=== PATIENT | female | born 1945 | race Caucasian/White ===

== ENCOUNTER → 2016-10-11 | Outpatient (CLI) | payer MEDICARE, OTHER ==
[~2016-10-11] MED LIST: ALLERGY10 M1 PO; ARTHRITIS PAIN650 M3 PO; ATORVASTATIN CA10 MG PO; BIOTIN5000 MCG; CALCIUM + D 6001 TA1 PO; CALCIUM 250+D T1 TAB PO; CALCIUM 600 +1 EAC4 PO; CENTRUM SILVER PO; CERTAGEN PO; CLARITIN10 M2 PO; DRY EYE DROPS; FISH OIL 1,0001 CAP PO; FISH OIL 1,2001 CAP PO; FLONASE ALLERG9.9 ML; FOLIC ACID PO; FOLIC ACID1 MG PO; GLUCOSAMINE &1 EAC1; GLUCOSAMINE 1,51 CA1 PO; HARD NAILS2500 MCG; LEVOTHYROXINE25 MC1 PO; LIPITOR PO; METHOTREXATE2.5 MG PO; PLAQUENIL200 MG; PLAQUENIL200 MG PO; PREDNISONE PO; PREDNISONE1 MG PO; TIROSINT50 MCG PO; TYLENOL ARTHRITIS; VIT E PO; VITAMIN B122500 MCG; VITAMIN B650 MG; VITAMIN D 22000 UNIT; VITAMIN D 4001 UDTAB PO; VITAMIN D35000 UNI1 PO; VITAMIN E400 UNI2 PO; [UNRECOGNIZED DRUG - OTHER] PO
--- NOTE | ~2016-10-11 | CR63 ---
[facility] A Service of [facility] & [facility] RADIOLOGY TEXT RESULTS PATIENT: KODY WASHBURN LOCATION: [facility] : 43 UNIT #: [id number] AGE: [address]: Jose Armando Narvaez MD SEX: F ORDER DR: [id number] [facility] [address] [place], [place] [address] [id number] O MR#: [id number] Acc #: [id number] NAME: KODY WASHBURN : 1945 SEX: F STUDY DATE/TIME: 10/11/2016 11:25 UNIT: [facility] ROOM: STUDY DESCRIPTION: CR Chest 2 View Attending Physician: Jose Armando Narvaez M.D. Referring Physician: Jose Armando Narvaez M.D. Ordering Physician: Jose Armando Narvaez M.D. Primary Care Physician: Don Lam D.O. MEDICAL IMAGING REPORT This report is preliminary unless electronic signature is present EXAM PA and lateral views of the chest 10/11/2016 COMPARISON None INDICATIONS 70-year-old female, preoperative respiratory exam prior to left total knee arthroplasty. FINDINGS No evidence of pneumothorax, pleural effusion or acute airspace disease. Cardiomediastinal silhouette is within normal limits. Mrxu-ka-eosdiywy multilevel anterior spondylosis of the thoracic spine. IMPRESSION No acute radiographic abnormality of the chest. Top normal heart size. Dictated by... Laith Montalvo M.D. THIS IS AN ELECTRONICALLY VERIFIED REPORT Laith Montalvo M.D. at 10/16/2016 4:16 PM Kristina TD: 10/11/2016 16:49 JOB #: [id number] MEDICAL IMAGING REPORT Page 1 of 1 COPY
--- NOTE | ~2016-10-11 | EKG ---
PATIENT: KODY WASHBURN UNIT #: [id number] Ventricular Rate: 60 BPM Atrial Rate: 60 BPM P-R Interval: 216 ms QRS Duration: 96 ms Q-T Interval: 424 ms QTC Calculation(Bezet): 424 ms P [place]: 60 degrees Calculated R [place]: -15 degrees Calculated T [place]: 43 degrees Diagnosis Line: Sinus rhythm with 1st degree A-V block Diagnosis Line: Otherwise normal ECG Diagnosis Line: No previous ECGs available Diagnosis Line: Confirmed by RUDY BAIRES MD ([id number]) on 10/12/2016 Diagnosis Line: 7:52:26 PM INTERPRETING MD: VIRY MONROY
--- NOTE | ~2016-10-11 | CO ---
Unit #: [id number] #: [id number] Patient: KODY WASHBURN [id number] [address] [place], [place] [address] [id number] O MR#: [id number] NAME: KODY WASHBURN ROOM: Age: 70 Sex: F Admission Date: 10/11/2016 : 1945 Attending Physician: Jose Armando Narvaez M.D. Primary Care Physician: Don Lam D.O. Requesting Physician: Jose Armando Narvaez M.D. CONSULTATION REPORT REASON FOR CONSULTATION Preoperative medical evaluation prior to left total knee arthroplasty scheduled by Dr. Narvaez for 10/23/16. HISTORY OF PRESENT ILLNESS The patient is a 70-year-old female who presents to pre-procedural screening for the reasons indicated above. She complains of left knee pain but has no other active complaints at this time. She reports having one episode of left chest pressure without associated symptoms which resolved spontaneously as well as an episode of palpitations for one episode which also was not associated with other symptoms and which resolved spontaneously. She is able to perform her activities of daily living and does not climb stairs. She has never seen a curriculum developer or had a cardiac workup. She denies chest, arm, neck, jaw, back pain or pressure at this time. She denies lightheadedness, dizziness, presyncope, syncope, palpitations. Denies shortness of air, dyspnea on exertion, PND. She has a history of obstructive sleep apnea but is unable to tolerate the CPAP. She states that her snoring has improved markedly after weight loss. She denies myocardial infarction, congestive heart failure, CVA, TIA, renal disease or diabetes. She has been evaluated by Dr. Narvaez and scheduled for the above referenced procedure. PAST MEDICAL HISTORY 1. Osteoarthritis. 2. Obstructive sleep apnea, unable to tolerate CPAP mask. 3. Emphysema. 4. Hypothyroidism. 5. History of bleeding ulcer. 6. Chronic dry eye. 7. Hyperlipidemia. 8. Chronic anemia. 9. Rheumatoid arthritis. 10. Osteopenia. 11. History of skin cancer. 12. Restless leg syndrome. 13. Nausea and vomiting post anesthesia. 14. GERD. PAST SURGICAL HISTORY 1. Tumor excision from right thigh. 2. Breast biopsy x2. 3. Tubal ligation. 4. Hemorrhoidectomy. Unit #: [id number] #: [id number] Patient: KODY WASHBURN 5. Right inguinal hernia repair. 6. ENT. 7. Right total knee arthroplasty. 8. Colonoscopy with excision of polyps with negative reports for malignancy per patient. The patient denies a personal and family history of complications to anesthesia other than nausea and vomiting. ALLERGIES Latex allergy - latex causes burn-like blisters and a rash. Medication allergies - sulfa, codeine and aspirin. Adverse reaction - bleeding ulcers. Levofloxacin with unknown reaction. CURRENT MEDICATIONS 1. Levothyroxine sodium 50 mcg p.o. in the morning at 6 a.m. 2. Methotrexate 25 mg p.o. q.7 days on Sunday. 3. Prednisone 3 mg p.o. daily. 4. Plaquenil 400 mg at bedtime. 5. Atorvastatin calcium 10 mg p.o. Sunday and at bedtime. 6. Folic acid 1 mg p.o. daily. 7. Allergy 10 mg p.o. at bedtime. 8. Flonase Allergy Relief, two sprays inhaled daily p.r.n. allergy symptoms. 9. Dry Eye drops as needed for dry eyes. 10. Calcium 600 plus D3 softgel, one cap p.o. daily. 11. Fish oil 1200 mg softgel, one p.o. daily. 12. Glucosamine and chondroitin, one tab daily. 13. Centrum Silver, one tab p.o. daily. 14. Vitamin D3 5000 units p.o. daily. 15. Vitamin E 400 units p.o. daily. 16. Biotin 5000 mcg p.o. daily. 17. Vitamin B12 1000 mcg p.o. daily. 18. Vitamin B6 100 mg p.o. daily. 19. Arthritis pain relief 650 mg p.o. every six hours p.r.n. pain. SOCIAL HISTORY Denies tobacco use, ETOH use. No illicit drug use. FAMILY HISTORY Per review of Dr. Narvaez's office note and review of the patient - breast cancer, diabetes, hypertension and stroke. REVIEW OF SYSTEMS The patient reports small, dry, intermittently pruritic spot on posterior thigh which has bled after scratching. Reports an episode of left chest pain/pressure and a separate episode of palpitations within the past several months. The patient doesn't climb stairs. She does not have a curriculum developer. A ten point review of systems is conducted and otherwise negative except as indicated under history of present illness above. PHYSICAL EXAMINATION VITAL SIGNS: Temp 97.5, heart rate 62, respiratory rate 20, blood pressure 147/82, oxygen saturation 100% on room air. HEENT: Atraumatic, normocephalic. Sclerae anicteric. No discharge from eyes, ears or noses. LYMPHS: No preauricular, postauricular, tonsillar, submental, anterior, posterior, cervical, supra or infraclavicular adenopathy. Unit #: [id number] #: [id number] Patient: KODY WASHBURN ENDOCRINE: No thyromegaly, thyroid nodules or tenderness. RESPIRATORY: Clear to auscultation in all [place] bilaterally without wheezes, rhonchi or rales. CARDIOVASCULAR: S1, S2. Regular rate and rhythm without murmur or rub. No carotid bruits to auscultation. GI: Bowel sounds positive x4. Soft, nontender, nondistended. EXTREMITIES: 1 to 2+ bilateral lower extremity edema without cyanosis or clubbing. MUSCULOSKELETAL: Strength 5/5 in all extremities bilaterally to flexion/extension. NEURO: Alert and oriented x3. Speech clear. Cranial nerves II-XII grossly intact. SKIN: Approximately 5 mm dry, scaly area without erythema, edema or discharge. DIAGNOSTIC STUDIES LABORATORY: WBC 7.3, hemoglobin 11.6, hematocrit 35.3, platelets 257,000. Sodium 135, potassium 4.6, chloride 101, CO2 27, glucose 78, BUN 23, creatinine 0.8, calcium 9.3, AST 26, ALT 22, alkaline phos. 62, bili total 0.9, total protein 6.6, albumin 3.9. Blood type 0 negative. Antibody screen negative. Urinalysis negative with neither culture nor microscopic indicated. PT 10.2, INR 1.0, TSH 2.37, free T4 1.49. MRSA nasal swab - report pending at this time. IMAGIN-view chest x-ray report pending at this time. CARDIOVASCULAR: 12-lead EKG - sinus rhythm with first degree AV block. Confirmed report pending at this time. IMPRESSION The patient is a 70-year-old female who presents to pre-procedural screening for: 1. Preoperative evaluation prior to left total knee arthroplasty scheduled to Dr. Narvaez: The patient's Bañuelos Revised Cardiac Risk Index is equal to 0.4% which represents the patient's risk of cardiac , fatal or nonfatal myocardial infarction, cardiopulmonary arrest, arrhythmia and/or pulmonary edema. This has been discussed in detail with the patient. She wished to proceed with surgery as scheduled at this time. Given the patient's recent complaints of left chest pressure and episode of palpitations, I have recommended that the patient receive preoperative cardiac clearance. She is going to contact Dr. Alvarado with whom her is an established patient to schedule this appointment. 2. Emphysema, stable. 3. Hypothyroidism: TSH and free T4 are within normal range. 4. History of bleeding ulcer. 5. Chronic dry eye. 6. Hyperlipidemia. 7. Anemia of chronic disease: H and H stable. Will watch H and H perioperatively. 8. 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 Dr. Narvaez will advise the patient regarding whether the patient to continue or hold methotrexate and Plaquenil Unit #: [id number] #: [id number] Patient: KODY WASHBURN perioperatively. 9. Osteopenia. 10. History of skin cancer. 11. Restless leg syndrome. 12. History of nausea and vomiting post anesthesia. 13. Left posterior leg keratosis: The patient has been advised that if this should bleed again and/or continue to bother her or enlarge she should see a labor economist and she has verbalized understanding of this information. 14. Gastroesophageal reflux disease. Thank you for allowing us to participate in the care of this patient. Will gladly follow her for postop medical management pending cardiac clearance, order of Dr. Narvaez. Dictated by... Angelica Mccauley A.P.R.N. for Palma Chen M.D. ARELIS/danielle TD: 10/13/2016 07:18 JOB #: [id number] CONSULTATION REPORT Page 1 of 1 X Angelica Mccauley APRN X CONSULTATION REPORT
[2016-10-11 08:33] LABS: HEMATOCRIT 35.3 % (35.0-45.0); HEMOGLOBIN 11.6 gm/dL (12.0-16.0); MEAN CELL VOLUME 89.6 FL (83-96); MEAN CORPUSCULAR HEMOGLOBIN 29.3 PG (28-34); MEAN CORPUSCULAR HGB CONC 32.7 g/dL (30-36); MEAN PLATELET VOLUME 7.5 FL (6.5-11.5); RED BLOOD COUNT 3.94 X10e (3.90-5.30); WHITE BLOOD COUNT 7.3 X10e3 (4.0-10.5)
[2016-10-11 08:34] LABS: URINE APPEARANCE CLEAR; URINE BILIRUBIN NEG (NEG); URINE BLOOD NEG (NEG); URINE COLOR YELLOW; URINE GLUCOSE NEG (NEG); URINE KETONE NEG (NEG); URINE LEUKOCYTE ESTERASE NEG (NEG); URINE NITRATE NEG (NEG); URINE PROTEIN NEG (NEG); URINE SPECIFIC GRAVITY 1.004 (1.003-1.035); URINE UROBILINOGEN 0.2 MG/DL (NEG)
[2016-10-11 08:38] LABS: CULTURE INDICATED? NO
[2016-10-11 08:46] LABS: PROTHROMBIN TIME (PATIENT) 10.2 SECONDS (9.6-11.5)
[2016-10-11 10:42] LABS: ALBUMIN SERUM 3.9 g/dL (3.5-5.0); BILIRUBIN,TOTAL 0.9 mg/dL (0.2-2.0); BUN/CREATININE RATIO 28.75; CALCIUM SERUM 9.3 mg/dL (8.4-10.2); CREATININE SERUM 0.8 mg/dL (0.6-1.4); GLOM FILT RATE Estimated 74.2 mL/min (>60); POTASSIUM 4.6 mmol/L (3.5-5.1); PROTEIN TOTAL SERUM 6.6 g/dL (6.0-8.3)
[2016-10-11 11:47] LABS: THYROID STIMULATING HORMONE 2.37 uIU/ml (0.34-5.60)
[2016-10-11 11:54] LABS: FREE THYROXIN (T4) 1.49 ng/dL (0.58-1.64)
== END | disposition home or self-care (01) ==
LOC: CAMB 08:00
PROVIDERS: Orthopaedic Surgery
DX: Z01.818 Encounter for other preprocedural examination (principal); M17.12 Unilateral primary osteoarthritis, left knee; K21.9 Gastro-esophageal reflux disease without esophagitis; M06.9 Rheumatoid arthritis, unspecified; E78.5 Hyperlipidemia, unspecified; E03.9 Hypothyroidism, unspecified; E55.9 Vitamin D deficiency, unspecified; J43.9 Emphysema, unspecified; M19.90 Unspecified osteoarthritis, unspecified site; M85.80 Other specified disorders of bone density and structure, unspecified site; G25.81 Restless legs syndrome; Z85.828 Personal history of other malignant neoplasm of skin
CPT/HCPCS: 36415; 71020; 80053; 81003; 84439; 84443; 85027; 85610; 86850; 86900; 86901; 87070; 93005

== ENCOUNTER 2016-10-23 07:57 | Inpatient (IN) | payer MEDICARE, OTHER ==
--- NOTE | ~2016-10-23 | OR ---
Unit #: [id number] #: [id number] Patient: KODY WASHBURN [id number] [address] [place], [place] [address] [id number] I MR#: [id number] NAME: KODY WASHBURN ROOM: [facility] Date of Procedure: 10/23/2016 Admission Date: 10/23/2016 Surgeon: Jose Armando Narvaez M.D. : 1945 Attending Physician: Jose Armando Narvaez M.D. Primary Care Physician: Don Lam D.O. OPERATIVE REPORT PREOPERATIVE DIAGNOSIS Primary localized osteoarthritis of the left knee. POSTOPERATIVE DIAGNOSIS Primary localized osteoarthritis of the left knee. PROCEDURE PERFORMED Left total knee. ASSISTANTS Clementine and Samy. ANESTHESIA Adductor canal block plus general. ESTIMATED BLOOD LOSS 100 mL. DESCRIPTION OF PROCEDURE The patient was brought to the operating room, given an adductor canal block. She has severe arthritis of the left knee with mrqi-ov-htyl on x-ray. The pain limits her walking, standing, and sleeping. She has tried injections and anti-inflammatories with no relief of her discomfort. After her adductor canal block, the patient was then given a general anesthetic. Tourniquet was placed around the left thigh. The left leg was prepped and draped in a sterile fashion. Tourniquet was inflated to 250. A straight anterior skin incision was made. Subcu dissected away and a medial arthrotomy performed. Patella was slid to the side. Osteophytes were removed from the femur. The intramedullary guide was used and a 5 degree valgus cut was made on the distal femur. The femur was sized and found to be a size 4 for the DePuy PFC Sigma Knee system. The anterior-posterior cutting block was applied. Rotation was checked in the knee. Anterior and posterior cuts were made along with the chamfer cuts. Proximal tibial cut was made using a 0-degree cutting block. It was sized and found to be a size 3. With an [address] trial insert in place and the trial femur in place, the knee came to full extension and good stability in extension and flexion. The external alignment guide showed appropriate alignment of the limb. Rotation on the tibia was marked. The patella was grasped with 2 towel clips, measured 26 mm thick, cut smooth at 15 and a 41 patella was the appropriate size. The 3 drill holes were made. Trial patella applied and it tracked properly. We then removed all the trials, used the drill and punch for the tibial tray. The knee was Unit #: [id number] #: [id number] Patient: KODY WASHBURN irrigated and dried while the cement was mixed. Then, all 3 components were cemented simultaneously. Once again, it was a size 4 femur, size 3 tibia, 8 mm thick, and a 41 patella from the DePuy PFC Sigma Knee system. Any excess cement was removed. The knee was held in extension while the cement hardened. After the cement was hardened, the tourniquet was released. Hemostasis was obtained and then the wound was closed using 0 Ethibond in the arthrotomy, 0 and 2-0 Vicryl in the subcutaneous, and the skin was closed with a Prineo Dermabond closure. General anesthetic was reversed and she was transferred to the recovery room. early childhood assistant, Isidra Pablo was present throughout the entire case. Dictated by... Bridger Alvarez/josie TD: 10/23/2016 23:00 JOB #: [id number] OPERATIVE REPORT Page 1 of 1 X Jose Armando Narvaez MD X PROCEDURE OPERATIVE NOTE
--- NOTE | ~2016-10-23 | DS ---
Unit #: [id number] #: [id number] Patient: KODY PUGH [id number] [address] [place], [place] [address] [id number] I MR#: [id number] NAME: KODY PUGH ROOM: [facility] Age: 70 Sex: F Admission Date: 10/23/2016 : 1945 Discharge Date: Attending Physician: Jose Armando Narvaez M.D. Primary Care Physician: Don Lam D.O. DISCHARGE SUMMARY DATE OF ANTICIPATED DISCHARGE 10/24/[address] Narvaez. ADMITTING DIAGNOSIS Left knee osteoarthritis. DISCHARGE DIAGNOSIS Left knee osteoarthritis. HOSPITAL COURSE On 10/23/2016, Ms. Pugh underwent a left total knee arthroplasty. She tolerated the procedure well. She was transported to the fourth floor. She underwent physical therapy, medical management and anticoagulation therapy. She is doing well, is ready to be discharged. DISPOSITION Stable, discharged to [facility]. MEDICATIONS ON DISCHARGE Her routine home meds in addition to P[place] 10/325 mg and Coumadin 7.5 mg. FOLLOWUP AND INSTRUCTIONS 1. Ms. Pugh is going to be discharged to [facility]. 2. The patient is on Coumadin for DVT prophylaxis. At PT and INR are to be drawn every Sunday and . Please call the results in to [phone], attention Bi. 3. Skin sydney are to be discontinued two weeks postop. Place Steri-Strips 1/4" apart. 4. White MELVIN hose to be worn during the day and can be removed in the evening. 5. The patient can shower in one week and can drive after seen by Dr. Narvaez at the six-week postop appointment. Dictated by... Isidra Pablo PSilviaA.C. for Jose Armando Narvaez M.D. JEROME/tiffanie TD: 10/24/2016 11:06 Unit #: [id number] #: [id number] Patient: KODY PUGH JOB #: [id number] DISCHARGE SUMMARY Page 1 of 1 X Isidra Pablo DISCHARGE SUMMARY
[2016-10-24 02:40] LABS: HEMATOCRIT 28.1 % (35.0-45.0); HEMOGLOBIN 9.2 gm/dL (12.0-16.0)
[2016-10-24 02:53] LABS: INR 1.1; PROTHROMBIN TIME (PATIENT) 11.4 SECONDS (9.6-11.5)
[2016-10-24 03:05] LABS: BUN/CREATININE RATIO 34.28; CALCIUM SERUM 8.9 mg/dL (8.4-10.2); CREATININE SERUM 0.7 mg/dL (0.6-1.4); GLOM FILT RATE Estimated 87.2 mL/min (>60); MAGNESIUM 1.8 mg/dL (1.6-3.0); POTASSIUM 4.5 mmol/L (3.5-5.1)
== END 2016-10-24 17:05 | DRG 470 ==
LOC: CSUR 07:57 → CPACUOF 09:00 → C4B 14:20
PROVIDERS: Nurse Practitioner; Orthopaedic Surgery
PROC: 0SRD0J9 Replacement of Left Knee Joint with Synthetic Substitute, Cemented, Open Approach (ICD-10-PCS; principal; 2016-10-23 10:00)
DX: M17.12 Unilateral primary osteoarthritis, left knee (principal); M06.9 Rheumatoid arthritis, unspecified; E03.9 Hypothyroidism, unspecified; J43.9 Emphysema, unspecified; G25.81 Restless legs syndrome; Z88.2 Allergy status to sulfonamides; Z88.8 Allergy status to other drugs, medicaments and biological substances; Z88.5 Allergy status to narcotic agent; Z91.040 Latex allergy status
CPT/HCPCS: 80048; 83735; 85014; 85018; 85610; 94010; 94760; 97110; 97116; 97161; C1776; G8978-GP; G8979-GP; G8980-GP; J0131; J0171; J0690; J0735; J1100; J1650; J1885; J2250; J2405; J2795; J3010

== ENCOUNTER → 2016-11-06 | Outpatient (CLI) | payer MEDICARE, OTHER ==
[2016-11-06 09:33] LABS: INR 1.8
[2016-11-06 09:38] LABS: PROTHROMBIN TIME (PATIENT) 19.8 SECONDS (9.6-11.5)
== END | disposition home or self-care (01) ==
LOC: CLAB 08:47
PROVIDERS: Orthopaedic Surgery
DX: Z51.81 Encounter for therapeutic drug level monitoring (principal); Z96.652 Presence of left artificial knee joint; Z79.01 Long term (current) use of anticoagulants
CPT/HCPCS: 36415; 85610

== ENCOUNTER → 2016-11-09 | Outpatient (CLI) | payer MEDICARE, OTHER ==
[2016-11-09 09:45] LABS: INR 1.9
== END | disposition home or self-care (01) ==
LOC: CLAB 09:07
PROVIDERS: Orthopaedic Surgery
DX: Z51.81 Encounter for therapeutic drug level monitoring (principal); Z96.652 Presence of left artificial knee joint; Z79.01 Long term (current) use of anticoagulants
CPT/HCPCS: 36415; 85610

== ENCOUNTER → 2016-11-13 | Outpatient (CLI) | payer MEDICARE, OTHER ==
[2016-11-13 08:59] LABS: INR 1.8; PROTHROMBIN TIME (PATIENT) 19.4 SECONDS (9.6-11.5)
== END | disposition home or self-care (01) ==
LOC: CLAB 08:23
PROVIDERS: Orthopaedic Surgery
DX: Z51.81 Encounter for therapeutic drug level monitoring (principal); Z96.652 Presence of left artificial knee joint; Z79.01 Long term (current) use of anticoagulants
CPT/HCPCS: 36415; 85610

== ENCOUNTER → 2016-11-16 | Outpatient (CLI) | payer MEDICARE, OTHER ==
[2016-11-16 11:01] LABS: PROTHROMBIN TIME (PATIENT) 21.7 SECONDS (9.6-11.5)
== END | disposition home or self-care (01) ==
LOC: CLAB 08:29
PROVIDERS: Orthopaedic Surgery
DX: Z51.81 Encounter for therapeutic drug level monitoring (principal); Z96.652 Presence of left artificial knee joint; Z79.01 Long term (current) use of anticoagulants
CPT/HCPCS: 36415; 85610

== ENCOUNTER → 2016-11-20 | Outpatient (CLI) | payer MEDICARE, OTHER ==
[2016-11-20 08:53] LABS: INR 2.2; PROTHROMBIN TIME (PATIENT) 23.4 SECONDS (9.6-11.5)
== END | disposition home or self-care (01) ==
LOC: CLAB 08:19
PROVIDERS: Orthopaedic Surgery
DX: Z51.81 Encounter for therapeutic drug level monitoring (principal); Z79.01 Long term (current) use of anticoagulants; Z96.652 Presence of left artificial knee joint
CPT/HCPCS: 36415; 85610